=== PATIENT | female | born 1965 | race Caucasian/White ===

== ENCOUNTER 2019-03-05 15:14 | Observation (INO) | payer BC, OTHER ==
[~2019-03-05] VITALS: Ht 162.6 cm; Wt 100.0 kg
[2019-03-05] MEDS ORDERED: aspirin 81mg tab.chew PO ONE (15:35)
--- NOTE | 2019-03-05 15:40 | NUR ---
dr. kline at bedside.
[2019-03-05 16:09] LABS: BASOPHILS # (AUTO) 0.2 X10'3 (0-0.2); BASOPHILS % (AUTO) 1.1 % (0-1); EOSINOPHILS # (AUTO) 1.3 X10'3 (0-0.9); EOSINOPHILS % (AUTO) 9.1 % (0-6); HEMATOCRIT 43.3 % (35.0-45.0); HEMOGLOBIN 14.2 g/dl (12.0-16.0); LYMPHOCYTES # (AUTO) 5.1 X10'3 (1.1-4.8); LYMPHOCYTES % (AUTO) 36.6 % (21-51); MEAN CORPUSCULAR HEMOGLOBIN 29.7 PG (27.0-31.0); MEAN CORPUSCULAR HGB CONC 32.8 g/dL (33.0-36.5); MEAN CORPUSCULAR VOLUME 90.7 FL (78-98); MEAN PLATELET VOLUME 9.7 FL (7.4-10.4); MONOCYTES # (AUTO) 0.3 X10'3 (0-0.9); MONOCYTES % (AUTO) 2.1 % (2-12); NEUTROPHILS # (AUTO) 7.1 X10'3 (1.8-7.7); NEUTROPHILS % (AUTO) 51.1 % (42-75); PLATELET COUNT 331 X10'3 (140-440); RED BLOOD COUNT 4.78 X10'6 (4.20-5.60); RED CELL DISTRIBUTION WIDTH 14.4 % (11.5-14.5)
[2019-03-05 16:21] LABS: ALANINE AMINOTRANSFERASE 44 U/L (12-78); ALBUMIN/GLOBULIN RATIO 0.9 (1.1-1.5); ALKALINE PHOSPHATASE 126 IU/L (46-116); ANION GAP 9 (8-16); ASPARTATE AMINO TRANSFERASE 24 U/L (10-37); BILIRUBIN,TOTAL 0.3 MG/DL (0.1-1.0); BLOOD UREA NITROGEN 20 MG/DL (7-18); BUN/CREATININE RATIO 20.2 (6.6-38.0); CALCIUM 10.5 MG/DL (8.5-10.1); CHLORIDE 99 MMOL/L (99-107); CREATININE 0.99 MG/DL (0.40-0.90); GLUCOSE 140 MG/DL (70-104); POTASSIUM 3.6 MMOL/L (3.5-5.1); SODIUM 134 MMOL/L (135-145); TOTAL CARBON DIOXIDE 26.1 MMOL/L (24-32); TOTAL PROTEIN 8.3 G/DL (6.4-8.2); eGFR 59 ML/MIN
[2019-03-05 16:28] LABS: MAGNESIUM 2.2 MG/DL (1.5-2.4)
[2019-03-05] MEDS ORDERED: enoxaparin 100mg/ml syringe SUBCUT ONE (16:35)
[2019-03-05] MEDS ORDERED: nitroGLYCERIN 1gm ointment UD TP ONE (16:35)
[2019-03-05] MEDS ORDERED: LEVO175T7 PO (16:47)
[2019-03-05] MEDS ORDERED: FLUO60TA PO (16:47)
[2019-03-05] MEDS ORDERED: CHOL500050 PO (16:47)
[2019-03-05] MEDS ORDERED: magnesium 4gm in 100ml NS 100 ML IV PRN (17:20)
[2019-03-05] MEDS ORDERED: ondansetron/PF 4mg/2ml inj IV PRN (17:20)
[2019-03-05] MEDS ORDERED: magnesium Cl slow-release 64mg tablet PO PRN (17:20)
[2019-03-05] MEDS ORDERED: potassium CL 10mEq/100ml bag 100 ML IV PRN ×2 (17:20→17:35)
[2019-03-05] MEDS ORDERED: potassium Cl 20 mEq SR tablet PO PRN ×2 (17:20)
[2019-03-05] MEDS ORDERED: potassium Cl 40MEQ/NS 500ml 500 ML IV PRN (17:20)
[2019-03-05] MEDS ORDERED: magnesium 2GM in 50ml NS 50 ML IV PRN (17:20)
--- NOTE | 2019-03-05 19:35 | NUR ---
PATIENT ADMITTED TO ROOM 349B FROM ER FOR CHEST PAIN R/O ACS. PLACED COMFORTABLE IN BED. VITAL SIGNS TAKEN AND RECORDED.
[2019-03-05] MEDS ORDERED: Melatonin 3mg tablet PO PRN (21:10)
[2019-03-05] MEDS ORDERED: pneumococcal 23-VAL P-sac vacc 25 mcg/0.5ml vial IMVAC ONE (21:20)
[2019-03-05] MEDS: mag hydrox/Alum hydrox/simeth 30ml oral suspension PO PRN (21:58)
[2019-03-05] MEDS ORDERED: proCHLORperazine 10 MG/2 ml inj IV PRN (23:20)
[2019-03-05] MEDS: acetaminophen 325mg tablet PO PRN (23:28)
[2019-03-06] VITALS: BP 102/65
[2019-03-06] MEDS: nitroGLYCERIN 0.4mg SUBLingual tab SL PRN ×3 (02:58→09:35)
[2019-03-06 03:57] LABS: BASOPHILS # (AUTO) 0.2 X10'3 (0-0.2); BASOPHILS % (AUTO) 1.1 % (0-1); EOSINOPHILS # (AUTO) 1.3 X10'3 (0-0.9); EOSINOPHILS % (AUTO) 8.7 % (0-6); HEMATOCRIT 40.4 % (35.0-45.0); HEMOGLOBIN 13.4 g/dl (12.0-16.0); LYMPHOCYTES # (AUTO) 5.5 X10'3 (1.1-4.8); LYMPHOCYTES % (AUTO) 36.5 % (21-51); MEAN CORPUSCULAR HEMOGLOBIN 30.2 PG (27.0-31.0); MEAN CORPUSCULAR VOLUME 91.4 FL (78-98); MEAN PLATELET VOLUME 9.8 FL (7.4-10.4); MONOCYTES # (AUTO) 0.9 X10'3 (0-0.9); MONOCYTES % (AUTO) 5.7 % (2-12); NEUTROPHILS # (AUTO) 7.2 X10'3 (1.8-7.7); PLATELET COUNT 293 X10'3 (140-440); RED BLOOD COUNT 4.42 X10'6 (4.20-5.60); RED CELL DISTRIBUTION WIDTH 14.5 % (11.5-14.5); WHITE BLOOD COUNT 15.1 X10'3 (4.5-11.0)
[2019-03-06 04:03] LABS: ALBUMIN 3.4 G/DL (3.4-5.0); ANION GAP 9 (8-16); BLOOD UREA NITROGEN 17 MG/DL (7-18); BUN/CREATININE RATIO 18.1 (6.6-38.0); CHLORIDE 100 MMOL/L (99-107); CREATININE 0.94 MG/DL (0.40-0.90); GLUCOSE 103 MG/DL (70-104); MAGNESIUM 2.2 MG/DL (1.5-2.4); POTASSIUM 3.8 MMOL/L (3.5-5.1); SODIUM 134 MMOL/L (135-145); TOTAL CARBON DIOXIDE 25.4 MMOL/L (24-32); eGFR 63 ML/MIN
[2019-03-06] MEDS: acetaminophen 325mg tablet PO PRN (05:09)
--- NOTE | 2019-03-06 05:30 | NUR ---
PATIENT COMPLAINED THAT LEFT ARM IV SITE IS PAINFUL AND WANTED THAT PIV OUT, OTHERWISE SHE WILL PULL IT OUT HERSELF AND WILL GO HOME. OFFERED PATIENT TO PUT A NEW PIV BUT REFUSED, SHE SAID SHE WOULD RATHER GO HOME. WILL CALL
--- NOTE | 2019-03-06 05:49 | NUR ---
PAGED DR. LOPEZ TO INFORM PATIENT'S REFUSAL FOR IV RESTART. AWAITING MD TO CALL BACK.
--- NOTE | 2019-03-06 06:30 | NUR ---
Problems reprioritized. Patient report given, questions answered & plan of care reviewed with BASSAM PAT.
--- NOTE | 2019-03-06 06:30 | NUR ---
Patient in room [facility]. I have received report from Cheyanne PAT and had the opportunity to ask questions and assume patient care.
[2019-03-06] MEDS: K and/or MAG REPLACEMENT MC SCH (07:06)
[2019-03-06] MEDS ORDERED: metoprolol tartrate 1mg/ml inj IV PRN (07:10)
[2019-03-06] MEDS ORDERED: aminophylline 250mg/10ml inj. IV PRN (07:10)
[2019-03-06] MEDS ORDERED: ibuprofen 200mg tablet PO PRN (07:10)
[2019-03-06] MEDS ORDERED: regadenoson 0.4mg/5ml syringe IV ONE (07:10)
[2019-03-06] MEDS ORDERED: nitroGLYCERIN 0.4mg SUBLingual tab SL PRN (07:10)
[2019-03-06 07:17] VITALS: BP 129/78
[2019-03-06] MEDS: FLUoxetine 20mg capsule PO SCH ×2 (07:19→09:18)
[2019-03-06] MEDS: levoTHYROXINE 175mcg tablet PO SCH ×2 (07:19→09:18)
[2019-03-06] MEDS: vitamin D (cholecalciferol) 1,000 unit tablet PO SCH ×2 (07:19→09:18)
[2019-03-06] MEDS: traMADol 50MG tablet PO PRN (07:26)
--- NOTE | 2019-03-06 08:40 | NUR ---
Dr. Orr informed that pt cant have lexiscan until tomorrow due to nuc med not having enough injections today. Also informed MD that pt still does not have IV in place, due to pt stating her arms are too painful. Will continue to monitor.
--- NOTE | 2019-03-06 09:28 | NUR ---
paged regarding pt complaint of 06/17 pain to bilateral arms, with no pain relief from ultram. stated to give nitro 0.4 SL and norco. Also informed pt is refusing IV at this time because pain is so bad. aware. Addendum: 03/06/19 at 0931 by Sara Albarran RN also stated to place pt on 1L of oxygen, even though her SaO2 is 98% on RA.
[2019-03-06] MEDS: HYDROcodone/acetaminophen 10/325mg tab PO PRN ×2 (09:44→20:58)
[2019-03-06] MEDS: levoFLOXACIN 500mg tablet PO SCH (10:46)
[2019-03-06 10:59] VITALS: BP 114/72
[2019-03-06] MEDS ORDERED: nicotine 14mg patch - 24hr TD ONE ×2 (11:46→16:00)
[2019-03-06] MEDS: mag hydrox/Alum hydrox/simeth 30ml oral suspension PO PRN (12:17)
[2019-03-06] MEDS: normal saline 1000ml 1,000 ML IV SCH (12:17)
[2019-03-06] MEDS ORDERED: LORazepam 2 mg/ml vial IV ONE (12:35)
[2019-03-06] MEDS: morphine 2 MG/ML inj. syringe IV PRN ×2 (12:53→19:12)
[2019-03-06 12:54] LABS: CLARITY,URINE CLEAR (Clear); COLOR,URINE YELLOW (Yellow); GLUCOSE, URINE NEGATIVE (Neg); KETONES,URINE NEGATIVE (Neg); LEUKOCYTE ESTERASE ,URINE NEGATIVE (Neg); NITRITES, URINE NEGATIVE (Neg); OCCULT BLOOD,URINE NEGATIVE (Neg); PH,URINE 7.5 (4.8-8.0); PROTEIN,URINE NEGATIVE (Neg); UROBILINOGEN,URINE 0.2 E.U/dL (0.2-1.0)
[2019-03-06 12:55] LABS: UA COLLECTION TYPE NON-SPECIFIED
--- NOTE | 2019-03-06 15:10 | NUR ---
Patient taken down for MRI via W/C.
--- NOTE | 2019-03-06 16:20 | NUR ---
Dr. Orr aware of MRI results. No new orders at this time.
--- NOTE | 2019-03-06 18:25 | NUR ---
Problems reprioritized. Patient report given, questions answered & plan of care reviewed with Cheyanne PAT.
--- NOTE | 2019-03-06 18:30 | NUR ---
Patient in room [facility]. I have received report from BASSAM PAT and had the opportunity to ask questions and assume patient care.
[2019-03-06 20:00] VITALS: BP 134/73
[2019-03-06] MEDS ORDERED: regadenoson 0.4mg/5ml syringe IV PRN (20:25)
[2019-03-06] MEDS: LORazepam 1 MG tablet PO PRN (21:32)
[2019-03-07] VITALS (13 sets, daily range): BP systolic 111–144; BP diastolic 58–82
[2019-03-07 05:43] LABS: ALBUMIN 3.1 G/DL (3.4-5.0); ANION GAP 8 (8-16); BLOOD UREA NITROGEN 9 MG/DL (7-18); BUN/CREATININE RATIO 10.7 (6.6-38.0); CALCIUM 8.1 MG/DL (8.5-10.1); CHLORIDE 103 MMOL/L (99-107); CREATININE 0.84 MG/DL (0.40-0.90); GLUCOSE 106 MG/DL (70-104); MAGNESIUM 2.4 MG/DL (1.5-2.4); POTASSIUM 4.2 MMOL/L (3.5-5.1); SODIUM 136 MMOL/L (135-145); TOTAL CARBON DIOXIDE 24.9 MMOL/L (24-32); eGFR 71 ML/MIN
[2019-03-07 05:46] LABS: BASOPHILS # (AUTO) 0.1 X10'3 (0-0.2); BASOPHILS % (AUTO) 0.8 % (0-1); EOSINOPHILS % (AUTO) 8.7 % (0-6); HEMATOCRIT 39.8 % (35.0-45.0); HEMOGLOBIN 13.2 g/dl (12.0-16.0); LYMPHOCYTES # (AUTO) 3.8 X10'3 (1.1-4.8); MEAN CORPUSCULAR HEMOGLOBIN 30.4 PG (27.0-31.0); MEAN CORPUSCULAR HGB CONC 33.1 g/dL (33.0-36.5); MEAN CORPUSCULAR VOLUME 91.9 FL (78-98); MONOCYTES # (AUTO) 0.7 X10'3 (0-0.9); MONOCYTES % (AUTO) 5.7 % (2-12); NEUTROPHILS % (AUTO) 51.8 % (42-75); PLATELET COUNT 301 X10'3 (140-440); RED BLOOD COUNT 4.33 X10'6 (4.20-5.60); RED CELL DISTRIBUTION WIDTH 14.7 % (11.5-14.5); WHITE BLOOD COUNT 11.6 X10'3 (4.5-11.0)
--- NOTE | 2019-03-07 06:20 | NUR ---
Patient in room [facility]. I have received report from Cheyanne PAT and had the opportunity to ask questions and assume patient care.
--- NOTE | 2019-03-07 06:30 | NUR ---
Problems reprioritized. Patient report given, questions answered & plan of care reviewed with BASSAM PAT.
[2019-03-07] MEDS: K and/or MAG REPLACEMENT MC SCH (07:02)
[2019-03-07] MEDS: levoTHYROXINE 175mcg tablet PO SCH (07:03)
[2019-03-07] MEDS: vitamin D (cholecalciferol) 1,000 unit tablet PO SCH (07:03)
[2019-03-07] MEDS: morphine 2 MG/ML inj. syringe IV PRN (07:09)
[2019-03-07] MEDS: normal saline 1000ml 1,000 ML IV SCH (07:15)
[2019-03-07] MEDS ORDERED: nicotine 14mg patch - 24hr TD SCH (08:00)
[2019-03-07] MEDS ORDERED: FLUoxetine 20mg capsule PO SCH (08:00)
--- NOTE | 2019-03-07 08:45 | NUR ---
Patient taken down to Lexiscan via W/C.
[2019-03-07] MEDS ORDERED: regadenoson 0.4mg/5ml syringe IV ONE (09:19)
[2019-03-07] MEDS ORDERED: LEVO500T89 PO (11:20)
[2019-03-07] MEDS ORDERED: TRAM50TA2 PO (11:20)
[2019-03-07] MEDS ORDERED: LORA0.5T PO (11:37)
[2019-03-07] MEDS: traMADol 50MG tablet PO PRN (11:42)
[2019-03-07] MEDS: levoFLOXACIN 500mg tablet PO SCH (11:42)
[2019-03-07] MEDS: LORazepam 1 MG tablet PO PRN (11:47)
--- NOTE | 2019-03-07 12:53 | NUR ---
Patient discharged with all belongings. to take pt home. W/C to front lobby.
[2019-03-07] MEDS ORDERED: lactobacillus rhamnosus 10,000 MMU CELLS/CAPSULE PO SCH (20:00)
== END 2019-03-07 12:39 | disposition home or self-care (01) ==
LOC: ER 15:15 → SUR 3N 19:41
PROVIDERS: ADMIT Internal Medicine; ATTEND Internal Medicine
DX: R07.9 Chest pain, unspecified (principal); E03.9 Hypothyroidism, unspecified; F32.9 Major depressive disorder, single episode, unspecified; R06.02 Shortness of breath; Z88.0 Allergy status to penicillin; F17.210 Nicotine dependence, cigarettes, uncomplicated; G89.29 Other chronic pain; M79.602 Pain in left arm; M79.601 Pain in right arm; Z71.6 Tobacco abuse counseling; I45.81 Long QT syndrome; E66.01 Morbid (severe) obesity due to excess calories; Z68.42 Body mass index [BMI] 45.0-49.9, adult; R53.83 Other fatigue; M54.9 Dorsalgia, unspecified; M50.823 Other cervical disc disorders at C6-C7 level
CPT/HCPCS: 36415; 71045; 72141; 78452; 80048; 80053; 81003; 83036; 83605; 83735; 83880; 84484; 85025; 87040; 87081; 90471; 93005; 93017; 93306; 96372; 96374; 96375; 96376; 99284; A9500; G0378; J0780; J2060; J2270; J2405; J2785; J7030; J1650

== ENCOUNTER 2019-08-11 16:01 | Outpatient (CLI) | payer OTHER ==
[~2019-08-11] VITALS: Ht 165.1 cm; Wt 104.3 kg
[~2019-08-11 16:01] MED LIST: CHOL500050 PO; FLUO60TA PO; LEVO175T7 PO; LEVO500T89 PO; TRAM50TA2 PO
[2019-08-11 16:26] LABS: TOTAL HEMOGLOBIN 14.6 G/dl (12.0-16.0)
[2019-08-11] MEDS ORDERED: albuterol 2.5 MG/3 ML nebule NEB PRN (16:45)
== END 2019-08-11 23:59 | disposition home or self-care (01) ==
LOC: RT 16:01
PROVIDERS: ATTEND Internal Medicine Pulmonary Disease
DX: J44.9 Chronic obstructive pulmonary disease, unspecified (principal); F17.210 Nicotine dependence, cigarettes, uncomplicated
CPT/HCPCS: 85018; 94060; 94727; 94729; 94760